=== PATIENT | male | born 1975 ===

== ENCOUNTER → 2023-09-05 17:18 | Outpatient (REF) | payer OTHER, SELFPAY | LOC: MRI 17:18 | PROVIDERS: ATTENDING PHYSICIAN Family Medicine | DX: K76.0 Fatty (change of) liver, not elsewhere classified (principal); R93.2 Abnormal findings on diagnostic imaging of liver and biliary tract | CPT/HCPCS: 74183; A9575 ==

== ENCOUNTER 2024-12-22 15:11 | Emergency (ER) | payer OTHER, SELFPAY ==
[2024-12-22 15:15] VITALS: BP 154/90
--- NOTE | 2024-12-22 15:16 | ED.GENMED ---
ED Provider Triage
<Paulette Vaca PA-C - Last Filed: 12/23/24 08:54>
-
Patient seen by provider in Triage?: Seen in Triage
Attestation: A medical screening examination has been initiated by a qualified medical provider. Based on the assessment performed at this time, it has been determined that an emergent medical condition may exist and the patient has been informed
that further medical evaluation and possible additional diagnostic testing may be needed.
HPI: 49yoM here with substernal chest pain x several hours. Lifting bikes onto a bike rack when it started. Feels like a pulled muscle but deeper. Positional and uncomfortable taking a deep breath.
GENERAL: Alert , in no apparent distress
EYE: No visual abnormalities.
NECK: Trachea midline
ENT: No visible abnormalities.
LUNGS: No acute respiratory distress
NEUROLOGICAL: Alert and oriented
SKIN: Skin intact. No visible changes.
MUSCULOSKELETAL: Moving extremities normally
PSYCH: Normal and appropriate interaction.
This is a medical evaluation conducted in person to initiate diagnostic evaluation and provide initial therapeutics. Please see further documentation by the treating clinician.
EKG shows sinus bradycardia without ischemic changes. Check cardiac labs and CXR.
History of Present Illness
<Paulette Vaca PA-C - Last Filed: 12/23/24 08:54>
General
Chief Complaint: Chest Pain
Time Seen by Provider: 12/22/24 19:00
<Seth Hawk PA-C - Last Filed: 12/22/24 23:14>
History of Present Illness
History of Present Illness:
49-year-old male with history of hyperlipidemia presents to the emergency department for evaluation of left-sided chest discomfort that began earlier in the day while attempting to lift multiple bicycles off of a bike rack. States initially he felt
as though he may have pulled a muscle but the pain worsened prompting him to come to the emergency department. While awaiting evaluation in the ER waiting room he states that his began to massage his subscapular back on the left which caused
his chest pain to resolve. He currently feels well with no continued symptoms at this point. No reported nausea or vomiting, has associated shortness of breath. No prior history of cardiac disease, denies any family history of precocious coronary
disease
Review of Systems
<Seth Hawk PA-C - Last Filed: 12/22/24 23:14>
Review of Systems
Allergies reviewed?: Yes
All Other Systems: ROS reviewed and negative except as documented in HPI and ROS
Phy Exam
<Seth Hawk PA-C - Last Filed: 12/22/24 23:14>
Physical Exam
Physical Exam:
GEN: Well appearing, NAD, WDWN
HEENT: Oral mucosa moist, no scleral icterus
Cardiac: Regular rate and rhythm, no murmurs, no reproducible chest wall pain on exam
Lung: No respiratory distress, no tachypnea, lungs clear to auscultation bilaterally
MSK: No gross deformity or injuries
Skin: Good color, no pallor or jaundice, no rashes
Neuro: AO x3, moves all extremities freely
Psych: Calm, cooperative
Scores
<Paulette Vaca PA-C - Last Filed: 12/23/24 08:54>
Heart Score for Chest Pain Patients
Heart Score for Chest Pain Patients: 2
Heart Score Risk: 2.5% MACE over next 6 weeks
<Seth Hawk PA-C - Last Filed: 12/22/24 23:14>
Heart Score for Chest Pain Patients
STEMI patient?: No
History: Slightly or Non-Suspicious
ECG: Normal
Age: >45 - <65 years
Risk Factors: 1 or 2 Risk Factors
Troponin: </= Normal Limit
Heart Score for Chest Pain Patients: 2
Heart Score Risk: 2.5% MACE over next 6 weeks
Course
<Paulette Vaca PA-C - Last Filed: 12/23/24 08:54>
Orders/Labs/Results
Orders:
Orders
12/22/24 15:12
Electrocardiogram (*1) Urgent
Reason for Study: Chest Pain
12/22/24 15:13
EKG- Treatment ONCE
12/22/24 15:18
CR Chest - 2 Views Urgent
Comment:
Reason For Exam: CP
12/22/24 15:26
Complete Blood Count/With Diff Urgent
Comprehensive Metabolic Panel Urgent
Troponin I Urgent
Abnormal Lab Results
12/22/24
15:26
MCH 31.7 H pg
(27.0-31.0)
MPV 10.7 H fL
(7.4-10.4)
Absolute Monos (auto) 0.9 H 10^3/uL
(0.1-0.6)
Monocytes % 13.0 H %
(1.7-9.3)
Chloride 109 H mmol/L
(98-107)
ALT 73 H U/L
(0-50)
12/22/24 15:26
12/22/24 15:26
Vital Signs
Initial and Last Documented VS:
Initial Vital Signs
Temp Pulse Resp BP Pulse Ox
98.6 F 63 18 154/90 98
12/22/24 15:15 12/22/24 15:15 12/22/24 15:15 12/22/24 15:15 12/22/24 15:15
Last Documented Vital Signs
Temp Pulse Resp BP Pulse Ox
98.6 F 53 19 141/76 98
12/22/24 15:15 12/22/24 19:00 12/22/24 19:08 12/22/24 19:00 12/22/24 18:57
<Seth Hawk PA-C - Last Filed: 12/22/24 23:14>
Orders/Labs/Results
Orders:
Orders
12/22/24 15:12
Electrocardiogram (*1) Urgent
Reason for Study: Chest Pain
12/22/24 15:13
EKG- Treatment ONCE
12/22/24 15:18
CR Chest - 2 Views Urgent
Comment:
Reason For Exam: CP
12/22/24 15:26
Complete Blood Count/With Diff Urgent
Comprehensive Metabolic Panel Urgent
Troponin I Urgent
Abnormal Lab Results
12/22/24
15:26
MCH 31.7 H pg
(27.0-31.0)
MPV 10.7 H fL
(7.4-10.4)
Absolute Monos (auto) 0.9 H 10^3/uL
(0.1-0.6)
Monocytes % 13.0 H %
(1.7-9.3)
Chloride 109 H mmol/L
(98-107)
ALT 73 H U/L
(0-50)
12/22/24 15:26
12/22/24 15:26
Vital Signs
Initial and Last Documented VS:
Initial Vital Signs
Temp Pulse Resp BP Pulse Ox
98.6 F 63 18 154/90 98
12/22/24 15:15 12/22/24 15:15 12/22/24 15:15 12/22/24 15:15 12/22/24 15:15
Last Documented Vital Signs
Temp Pulse Resp BP Pulse Ox
98.6 F 53 19 141/76 98
12/22/24 15:15 12/22/24 19:00 12/22/24 19:08 12/22/24 19:00 12/22/24 18:57
<Seth Hawk PA-C - Last Filed: 12/22/24 23:14>
MDM/Problems Addressed
MDM/Problems Addressed:
Patient's workup is reassuring. Certainly interesting that his symptoms resolved after left subscapular massage suggesting thoracic radiculopathy may be the cause. I do suspect that this is a mechanical or musculoskeletal etiology given his
activity being performed at the time of the pain and rapid resolution of symptoms
<Seth Hawk PA-C - Last Filed: 12/22/24 23:14>
Comment
Comment:
EKG independently interpreted by me shows a sinus bradycardia at a rate of [address] changes concerning for ischemia. Chest x-ray dependently interpreted by me shows no acute disease
*Pulse Oximetry
Patient hypoxic: no
*Critical Care Note
Total Time (30-74mins, 75-104mins- exclusive of procedures): Not Applicable
ED Attending Note
<Paulette Vaca PA-C - Last Filed: 12/23/24 08:54>
-
Portions of this chart may have been created with voice recognition software.� Occasional wrong word or��sound alike� substitutions may have occurred due to the inherent limitations of voice recognition software.
Discharge Plan
Departure
Patient Disposition: Home (Routine Discharge)
Date of Disposition: 12/22/24
Time of Disposition: 19:39
Patient with high blood pressure during this ER visit?: No
Discharge Problem:
Chest pain
Instructions: Chest Pain That Is Not Caused by the Heart (DC)
Interventions
Interventions:
*Risk Screen - Suicide Last Done: 12/22/24 15:15
*General Assessment Last Done: 12/22/24 15:15
*Neglect/Abuse Screening Last Done: 12/22/24 15:15
*ED- Fall Risk Assessment Last Done: 12/22/24 15:15
*ED COVID-19 Vaccine History Last Done: 12/22/24 15:15
*Nursing Disposition Last Done: 12/22/24 19:45
ED- Cardiac Assessment Last Done: 12/22/24 19:08
Discharge Date and Time
Discharge Date/Time: 12/22/24 19:46
Print Language: [id number]
[2024-12-22 15:38] LABS: Hematocrit 42.7 % (39.0-52.0); Hemoglobin 15.1 g/dL (13.0-18.0); Mean Corp Hgb Conc. 35.4 g/dL (33.0-37.0); Mean Corpuscular Volume 89.7 fL (80.0-94.0); Nucleated Red Blood Cells % 0 % (-); Platelet Count 226 10^3/uL (130-400); Red Cell Dist. Width 11.9 % (11.5-14.5)
[2024-12-22 15:55] LABS: ALT (SGPT) 73 U/L (0-50); AST (SGOT) 41 U/L (17-59); Albumin 4.7 g/dl (3.5-5.0); Alkaline Phosphatase 43 U/L (38-126); Blood Urea Nitrogen 17 mg/dl (9-20); Calcium 9.6 mg/dl (8.4-10.2); Carbon Dioxide 25 mmol/L (22-30); Chloride 109 mmol/L (98-107); Glucose 88 mg/dl (70-99); Potassium 4.5 mmol/L (3.5-5.1); Sodium 141 mmol/L (135-145); Total Protein 7.8 g/dl (6.3-8.2); eGFR > 60.00
[2024-12-22 16:06] LABS: Troponin I < 0.012 ng/ml
[2024-12-22 19:00] VITALS: BP 141/76
== END 2024-12-22 19:46 | disposition home or self-care (01) ==
LOC: EMR 15:11
PROVIDERS: Physician Assistant; EMERGENCY PHYSICIAN Emergency Medicine; FAMILY PHYSICIAN Nurse Practitioner
DX: R07.89 Other chest pain (principal); E78.5 Hyperlipidemia, unspecified
CPT/HCPCS: 99283; 71046; 80053; 84484; 85025; 93005